=== PATIENT | female | born 1950 | race Caucasian/White ===

== ENCOUNTER → 2017-06-20 | Outpatient (CLI) | payer BC ==
[~2017-06-20] MED LIST: ACET-1311; CALCTAB5; CLC100; INDO-22; LEVO25TA34; TETR250C3; VITAMINS; [UNRECOGNIZED DRUG - REMARK]
--- NOTE | 2017-06-21 07:51 | MAMMOGRAPHY REPORT ---
BILATERAL DIGITAL DIAGNOSTIC MAMMOGRAM TOMOSYNTHESIS WITH CAD AND TARGETED LEFT ULTRASOUND: 06/20/2017 CLINICAL HISTORY: 66-year-old woman with a personal history of right breast cancer status post breast conservation treatment, presents for annual bilateral mammography. TECHNIQUE: Bilateral breast tomosynthesis in addition to standard 2D mammography was performed. Curre nt study was also evaluated with a Computer Aided Detection (CAD) system. COMPARISON: Comparison is made to exams dated: 06/19/2016 mammogram, 06/14/2015 mammogram, 06/11/2014 mammogram, 06/02/2013 mammogram, 05/31/2012 mammogram, and 05/30/2011 mammogram - [facility]. BREAST COMPOSITION: There are scattered areas of fibroglandular density in both breasts. FINDINGS: There is expected architectural distortion in the upper outer posterior right breast, at th e site of prior lumpectomy. There are scattered benign calcifications in both breasts. An incomplet aria visualized partially circumscribed 6 mm mass projects over the inferior left pectoralis muscle on the MLO view, which appears somewhat similar to the 06/14/2015 left MLO view. This could represent a lymph node but further evaluation with ultrasound was performed. No other suspicious mass, archite ctural distortion or cluster of microcalcifications is seen. Targeted ultrasound was performed in the left axillary tail and axilla. A 1.5 cm lymph node is seen with cortical thickness ranging from 1.8-2.2 mm, which is within normal limits. A second somewhat sm aller lymph node with normal-appearing cortex is also identified in the superior left axilla. No rocío picious adenopathy is seen. This 1.5 cm lymph node is thought to correlate with the mammographic fin ding and is benign. IMPRESSION: ACR BI-RADS CATEGORY 2: BENIGN, TARGETED ULTRASOUND ACR BI-RADS CATEGORY 2: BENIGN There is no mammographic or targeted sonographic evidence of malignancy. Bilateral diagnostic mammog codie is recommended in 1 year, given the personal history of right breast cancer in case any additio nal mammographic views and/or ultrasound are needed. These results and recommendations were discusse d with the patient at the time of the exam. Approximately 10% of breast cancers are not detected with mammography. A negative mammographic report should not delay biopsy if a clinically suggestive mass is present. Kim Combs M.D. ay/:06/20/2017 09:31:40 [employer] Supervisor: Angelia Garcia, [facility] letter sent: Normal 1/2 BI-RADS Code: ACR BI-RADS Category 2: Benign Ultrasound BI-RADS: ACR BI-RADS Category 2: Benign
== END | disposition home or self-care (01) ==
LOC: C.MAMM 07:50
PROVIDERS: ATTEND Obstetrics & Gynecology
DX: Z12.31 Encounter for screening mammogram for malignant neoplasm of breast (principal); Z85.3 Personal history of malignant neoplasm of breast